=== PATIENT | male | born 1940 | race Caucasian/White ===

== ENCOUNTER → 2017-03-15 | Outpatient (CLI) | payer MEDICARE, OTHER | LOC: GMAB 10:33 | PROVIDERS: ATTEND Family Medicine | DX: I10 Essential (primary) hypertension (principal); Z12.5 Encounter for screening for malignant neoplasm of prostate | CPT/HCPCS: 84443; G0103 ==

== ENCOUNTER → 2018-03-21 | Outpatient (CLI) | payer MEDICARE, OTHER | LOC: GMAE 11:36 | PROVIDERS: ATTEND Family Medicine | DX: I10 Essential (primary) hypertension (principal) ==

== ENCOUNTER → 2019-04-04 | Outpatient (CLI) | payer MEDICARE, OTHER | LOC: GMAE 10:52 | PROVIDERS: ATTEND Family Medicine | DX: Z12.5 Encounter for screening for malignant neoplasm of prostate (principal); I10 Essential (primary) hypertension; E78.5 Hyperlipidemia, unspecified | CPT/HCPCS: 84443; G0103 ==

== ENCOUNTER → 2019-04-23 | Outpatient (CLI) | payer MEDICARE, OTHER ==
--- NOTE | 2019-04-23 09:33 | RAD ---
EXAM DESCRIPTION: Hand,Left 3 Views CLINICAL HISTORY: PAIN IN LEFT HAND COMPARISON: None Available. TECHNIQUE: AP, LATERAL, AND OBLIQUE FINDINGS: The visualized bones appear well mineralized. No acute fracture or dislocation. 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 Mild degenerative changes of the interphalangeal joints. The soft tissues appear grossly unremarkable. 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 Mild degenerative changes of the interphalangeal joints. Electronically signed by: Sofiya Luna MD 04/23/2019 9:32 AM [facility]
--- NOTE | 2019-04-23 09:34 | RAD ---
EXAM DESCRIPTION: Hand,Right 3 Views CLINICAL HISTORY: PAIN IN RIGHT HAND COMPARISON: None Available. TECHNIQUE: AP, LATERAL, AND OBLIQUE FINDINGS: The visualized bones appear well mineralized. No acute fracture or dislocation.Moderate degenerative changes are identified in the first, second, third and fourth metacarpophalangeal joints. Mild degenerative changes of the interphalangeal joints. The soft tissues appear grossly unremarkable. IMPRESSION: Moderate degenerative changes are identified in the first, second, third and fourth metacarpophalangeal joints. Mild degenerative changes of the interphalangeal joints. Electronically signed by: Sofiya Luna MD 04/23/2019 9:32 AM [facility]
== END ==
LOC: RAD 08:37
PROVIDERS: ATTEND Orthopaedic Surgery
DX: M19.041 Primary osteoarthritis, right hand (principal); M19.042 Primary osteoarthritis, left hand

== ENCOUNTER → 2020-04-07 | Outpatient (CLI) | payer MEDICARE, OTHER | LOC: GMAE 10:56 | PROVIDERS: ATTEND Family Medicine | DX: Z12.5 Encounter for screening for malignant neoplasm of prostate (principal); I10 Essential (primary) hypertension | CPT/HCPCS: 84443; G0103 ==